=== PATIENT | female | born 1980 | race Caucasian/White ===

== ENCOUNTER 2016-03-02 11:28 | Emergency (ER) | payer OTHER ==
[2016-03-02 11:33] VITALS: TEMP 98.2
[2016-03-02 11:34] VITALS: BMI 24.5
[2016-03-02] MEDS ORDERED: KETOROLAC TROMETHAMINE 10 MG TAB PO ONE (12:02)
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
[2016-03-02 14:02] VITALS: BP 129/86; PULSE 68
== END 2016-03-02 14:00 | disposition home or self-care (01) ==
LOC: EDMC 11:28
DX: S63.90XA Sprain of unspecified part of unspecified wrist and hand, initial encounter (principal); Y08.89XA Assault by other specified means, initial encounter; Y93.89 Activity, other specified
CPT/HCPCS: 73130; 99282; J3490